=== PATIENT | male | born 2000 | race Hispanic/Latino ===

== ENCOUNTER 2024-11-14 23:45 | Emergency (ER) | payer SELFPAY ==
[2024-11-14] MEDS ORDERED: Tetracaine 0.5% PF 4 ML BOT ONE (23:54)
== END 2024-11-15 00:08 | disposition home or self-care (01) ==
LOC: NAV ERS 23:45
DX: T16.2XXA Foreign body in left ear, initial encounter (principal); W44.F4XA Insect entering into or through a natural orifice, initial encounter
CPT/HCPCS: 69200